=== PATIENT | female | born 1970 | race Two or more races ===

== ENCOUNTER 2024-04-16 11:47 | Inpatient (IN) | payer MEDICARE, OTHER ==
[~2024-04-16] VITALS: Ht 170.2 cm; Wt 64.0 kg
[2024-04-16 11:30] VITALS: BP 115/60; TEMP 98.6; O2SAT 99
[2024-04-16] MEDS ORDERED: MIRT-91 PO (15:29)
[2024-04-16] MEDS ORDERED: MEMA5TAB42 PO (15:29)
[2024-04-16] MEDS ORDERED: TAPE50TA2 PO (15:29)
[2024-04-16] MEDS ORDERED: VENL150T PO (15:29)
[2024-04-16] MEDS ORDERED: DEXL60CA3 PO (15:29)
[2024-04-16] MEDS ORDERED: DICL100G34 TP (15:29)
[2024-04-16] MEDS ORDERED: CELE100C98 PO (15:29)
[2024-04-16] MEDS ORDERED: MIDO2.5T PO (15:29)
[2024-04-16] MEDS ORDERED: UBRO100T PO (15:29)
[2024-04-16] MEDS ORDERED: GABA800T11 PO (15:29)
[2024-04-16] MEDS ORDERED: DOXE100C4 PO (15:29)
[2024-04-16] MEDS ORDERED: LINA290C PO (15:29)
[2024-04-16] MEDS ORDERED: FOLI0.4T6 PO (15:29)
[2024-04-16 16:00] VITALS: BP 115/60; TEMP 98.6; O2SAT 99
[2024-04-16] MEDS: clonazePAM 0.5 MG TABLET PO PRN (18:10)
[2024-04-16 20:00] VITALS: BP 95/60; TEMP 98.3; O2SAT 99
[2024-04-16] MEDS: TEMAZEPAM 7.5 MG CAPSULE PO PRN (20:11)
[2024-04-16] MEDS: ACETAMINOPHEN 325 MG TABLET PO PRN (20:11)
[2024-04-16] MEDS: MAG HYDROX/AL HYDROX/SIMETH 30 ML UDC PO PRN (21:12)
[2024-04-17] MEDS ORDERED: DOXEPIN HCL (25 MG) 25 MG CAPSULE PO ONE ×2 (01:00→01:53)
[2024-04-17] MEDS: MIRTAZAPINE 15 MG TABLET PO SCH (01:12)
[2024-04-17] MEDS: DOXEPIN HCL (25 MG) 25 MG CAPSULE PO ONE (01:58)
[2024-04-17 07:29] LABS: CHOLESTEROL 251 mg/dL (<200); HDL CHOLESTEROL 96 mg/dL (40-60); LDL 143 mg/dL (0-99); TRIGLYCERIDES 78 mg/dL (30-150)
[2024-04-17 07:30] LABS: ALBUMIN 3.5 g/dL (3.4-5.0); BILIRUBIN,TOTAL 0.3 mg/dL (0.2-1.0); CALCIUM, SERUM 8.6 mg/dL (8.5-10.1); CREATININE 0.8 mg/dL (0.6-1.3); POTASSIUM 2.9 mmol/L (3.5-5.1); TOTAL PROTEIN, SERUM 6.8 g/dL (6.4-8.2)
[2024-04-17 07:32] LABS: CREATININE 0.9 mg/dL (0.6-1.3)
[2024-04-17 08:00] VITALS: BP 132/84; TEMP 97.9; O2SAT 100
[2024-04-17] MEDS: GABAPENTIN 400 MG CAPSULE PO SCH (08:59)
[2024-04-17] MEDS: MEMANTINE HCL 5 MG TABLET PO SCH (08:59)
[2024-04-17] MEDS: PANTOPRAZOLE 40 MG TABLET.DR PO SCH (08:59)
[2024-04-17] MEDS: CELECOXIB 100 MG CAPSULE PO SCH (08:59)
[2024-04-17] MEDS ORDERED: Medication Not On Formulary EA (Linaclotide (Linzess) 290 MCG) PO SCH (09:00)
[2024-04-17] MEDS: POTASSIUM CHLORIDE 20 MEQ TAB.PRT.SR PO ONE (11:12)
[2024-04-17 16:00] VITALS: BP 105/66; TEMP 98.4; O2SAT 97
[2024-04-17] MEDS: TRAMADOL HCL 50 MG TABLET PO PRN (18:59)
[2024-04-17] MEDS: LORAZEPAM 1 MG TABLET PO PRN (19:03)
[2024-04-17 20:00] VITALS: BP 111/70; TEMP 98.3; O2SAT 100
[2024-04-17 20:12] VITALS: BP 111/70; TEMP 98.3; O2SAT 100
[2024-04-17] MEDS: ATORVASTATIN 10 MG TABLET PO SCH (22:23)
[2024-04-17] MEDS: DOXEPIN HCL (25 MG) 25 MG CAPSULE PO SCH (22:23)
[2024-04-17] MEDS: TEMAZEPAM 15 MG CAPSULE PO PRN (22:23)
[2024-04-18 08:00] VITALS: BP 118/79; TEMP 98.2; O2SAT 97
[2024-04-18] MEDS: VENLAFAXINE XR 75 MG CAP.SR.24H PO SCH (08:45)
[2024-04-18 16:00] VITALS: BP 109/64; TEMP 98.3; O2SAT 99
[2024-04-18 20:34] VITALS: BP 100/58; TEMP 98.2; O2SAT 98
[2024-04-19 08:00] VITALS: BP 124/80; TEMP 97.8; O2SAT 100
[2024-04-19] MEDS: MIRTAZAPINE 15 MG TABLET PO SCH (09:18)
[2024-04-19] MEDS: VENLAFAXINE XR 75 MG CAP.SR.24H PO SCH (09:18)
[2024-04-19 16:00] VITALS: BP 119/78; TEMP 98.6; O2SAT 100
[2024-04-19] MEDS: TAPENTADOL PO SCH (20:29)
[2024-04-19] MEDS: DOXEPIN HCL (25 MG) 25 MG CAPSULE PO SCH (21:19)
[2024-04-19 21:41] VITALS: BP 124/81; TEMP 98.4; O2SAT 100
[2024-04-20] MEDS: KEY,NONCONTROL,TO KEEP IN PYXI 1 EA MC ONE ×4 (07:00→19:59)
[2024-04-20 08:00] VITALS: BP 112/75; TEMP 98; O2SAT 100
[2024-04-20] MEDS: GABAPENTIN 400 MG CAPSULE PO SCH (08:53)
[2024-04-20 16:00] VITALS: BP 114/68; TEMP 98.7; O2SAT 97
[2024-04-20 20:50] VITALS: BP 153/80; TEMP 98.6; O2SAT 99
[2024-04-20] MEDS ORDERED: ONDANSETRON 4 MG TAB.RAPDIS SL PRN (21:30)
[2024-04-20] MEDS: ONDANSETRON 4 MG TAB.RAPDIS SL PRN (21:36)
[2024-04-21 08:00] VITALS: BP 102/65; TEMP 97.7; O2SAT 100
[2024-04-21] MEDS: KEY,NONCONTROL,TO KEEP IN PYXI 1 EA MC ONE ×2 (09:04→21:03)
[2024-04-21 16:11] VITALS: BP 95/66; TEMP 98.2; O2SAT 98
[2024-04-21 20:00] VITALS: BP 113/77; TEMP 98.6; O2SAT 100
[2024-04-22 07:40] LABS: BASOPHILS % (AUTO) 1.1 % (0.0-2.0); EOSINOPHILS # (AUTO) 0.1 K/uL (0.0-0.7); EOSINOPHILS % (AUTO) 1.6 % (0.0-6.0); HEMATOCRIT 31 % (33-45); HEMOGLOBIN 10.4 g/dL (11.5-14.8); LYMPHOCYTES % (AUTO) 43.5 % (20.0-44.0); MEAN CORPUSCULAR HEMOGLOBIN 28 PG (26.0-33.0); MEAN CORPUSCULAR HGB CONC 33 g/dl (31.0-36.0); MEAN CORPUSCULAR VOLUME 86 fL (82-100); MONOCYTES # (AUTO) 0.4 K/uL (0.1-1.30); MONOCYTES % (AUTO) 7.9 % (2.0-12.0); NEUTROPHILS # (AUTO) 2.1 K/uL (1.8-8.9); NEUTROPHILS % (AUTO) 45.9 % (43.0-81.0); PLATELET COUNT (AUTO) 270 K/uL (150-450); RED BLOOD CELL COUNT(AUTO) 3.67 MIL/uL (4.0-5.2); RED CELL DISTRIBUTION WIDTH 14.3 % (11.5-15.0); WHITE BLOOD COUNT (AUTO) 4.6 K/uL (4.3-11.0)
[2024-04-22 08:00] VITALS: BP 130/80; TEMP 97.7; O2SAT 100
[2024-04-22 08:58] LABS: CALCIUM, SERUM 8.2 mg/dL (8.5-10.1); CREATININE 0.6 mg/dL (0.6-1.3); PHOSPHORUS 4.2 mg/dL (2.5-4.9); POTASSIUM 3.7 mmol/L (3.5-5.1)
[2024-04-22] MEDS: KEY,NONCONTROL,TO KEEP IN PYXI 1 EA MC ONE ×2 (09:24→21:09)
[2024-04-22 16:00] VITALS: BP 96/74; TEMP 98.8; O2SAT 100
[2024-04-22 20:00] VITALS: BP 98/80; TEMP 98.7; O2SAT 100
[2024-04-23 07:47] LABS: IRON, SERUM 20 ug/dl (50-175); TOTAL IRON BINDING CAPACITY 280 ug/dl (250-450)
[2024-04-23 08:00] VITALS: BP 94/61; TEMP 98.6; O2SAT 99
[2024-04-23 08:01] LABS: FERRITIN 15 ng/mL (8-388)
[2024-04-23] MEDS: MIDODRINE HCL (5MG) 5 MG TABLET PO SCH (12:53)
[2024-04-23] MEDS: MAGNESIUM HYDROXIDE 30 ML UDC PO PRN (15:41)
[2024-04-23 16:00] VITALS: BP 113/77; TEMP 98.6; O2SAT 100
[2024-04-23] MEDS: FERROUS SULFATE (325 MG) 325 MG/TAB TABLET PO SCH (17:05)
[2024-04-23 20:00] VITALS: BP 97/78; TEMP 98.6; O2SAT 98
[2024-04-23 21:27] VITALS: BP 97/78; TEMP 98.6; O2SAT 98
[2024-04-24 08:00] VITALS: BP 109/76; TEMP 98; O2SAT 100
[2024-04-24 16:00] VITALS: BP 138/89; TEMP 97.9; O2SAT 98
[2024-04-24] MEDS ORDERED: ATORVASTATIN 10 MG TABLET ONE (21:31)
[2024-04-24] MEDS: TRAMADOL HCL 50 MG TABLET PO PRN (22:46)
[2024-04-24 23:22] VITALS: BP 132/56; TEMP 98; O2SAT 95
[2024-04-25 08:06] VITALS: BP 110/64; TEMP 98; O2SAT 100
[2024-04-25] MEDS: KEY,NONCONTROL,TO KEEP IN PYXI 1 EA MC ONE (08:20)
[2024-04-25 16:17] VITALS: BP 105/66; TEMP 98.4; O2SAT 99
[2024-04-25 20:26] VITALS: BP 98/57; TEMP 98.3; O2SAT 100
[2024-04-26 08:00] VITALS: BP_SYST 104; BP_SYST 107; BP_DIAS 71; BP_DIAS 78; TEMP 98.6; TEMP 98.7; O2SAT 97; O2SAT 98
[2024-04-26] MEDS: risperiDONE 1 MG TABLET PO SCH (09:51)
[2024-04-26] MEDS: KEY,NONCONTROL,TO KEEP IN PYXI 1 EA MC ONE (10:36)
[2024-04-26] MEDS ORDERED: KEY,NONCONTROL,TO KEEP IN PYXI 1 EA MC ONE (21:06)
[2024-04-26 21:33] VITALS: BP 100/63; TEMP 98.8; O2SAT 99
[2024-04-27] MEDS ORDERED: KEY,NONCONTROL,TO KEEP IN PYXI 1 EA MC ONE ×3 (07:10→21:09)
[2024-04-27 08:00] VITALS: BP 104/66; TEMP 97.8; O2SAT 99
[2024-04-27] MEDS: KEY,NONCONTROL,TO KEEP IN PYXI 1 EA MC ONE (09:20)
[2024-04-27 16:11] VITALS: BP 112/64; TEMP 98.8; O2SAT 98
[2024-04-27 20:43] VITALS: BP 90/57; TEMP 98.9; O2SAT 100
[2024-04-28] MEDS: KEY,NONCONTROL,TO KEEP IN PYXI 1 EA MC ONE (07:22)
[2024-04-28 08:00] VITALS: BP 108/66; TEMP 98.2; O2SAT 98
[2024-04-28 08:19] VITALS: BP 108/66
== END 2024-04-28 11:30 | disposition home or self-care (01) | DRG 881 ==
LOC: GPS 11:47
PROVIDERS: ADMIT Psychiatry & Neurology Psychiatry; ATTEND Internal Medicine
DX: F32.9 Major depressive disorder, single episode, unspecified (principal); G31.84 Mild cognitive impairment of uncertain or unknown etiology; Z79.899 Other long term (current) drug therapy; E78.5 Hyperlipidemia, unspecified; F41.9 Anxiety disorder, unspecified; Z91.51 Personal history of suicidal behavior; G89.4 Chronic pain syndrome; Z98.890 Other specified postprocedural states; D50.9 Iron deficiency anemia, unspecified
CPT/HCPCS: 36415; 80048-TC; 80053-TC; 80061-TC; 82565-TC; 82728-TC; 82962-TC; 83540-TC; 83735-TC; 84100-TC; 85025-TC; Q0162